=== PATIENT | male | born 1975 | race Caucasian/White ===

== ENCOUNTER 2017-08-17 10:59 | Emergency (ER) | payer SELFPAY ==
[2017-08-17] MEDS ORDERED: KEPPRA 500MG500 MG PO (11:20)
[2017-08-17] MEDS ORDERED: ATIVAN 2MG2 MG PO (15:36)
[2017-08-17] MEDS ORDERED: LOPRESSOR 225 MG/TAB PO (15:36)
[2017-08-17 16:12] VITALS: BP 132/82
== END 2017-08-17 15:50 | disposition home or self-care (01) ==
LOC: ED 10:59
DX: F41.0 Panic disorder [episodic paroxysmal anxiety] (principal); F32.9 Major depressive disorder, single episode, unspecified; F10.10 Alcohol abuse, uncomplicated; Z87.11 Personal history of peptic ulcer disease; G40.89 Other seizures